=== PATIENT | female | born 1985 | race Caucasian/White ===

== ENCOUNTER 2018-09-08 15:40 | Emergency (ER) | payer BC, SELFPAY ==
[2018-09-08 15:44] VITALS: BP 134/90; PULSE 73; RESP 14; TEMP 36.8; O2SAT 98
[2018-09-08 16:06] LABS: Bilirubin Negative (Negative); Blood Negative (Negative); Clarity Clear (Clear); Glucose Negative (Negative); Ketones 15 mg/dL (Negative); Leukocyte Esterase Negative (Negative); Nitrite Negative (Negative); Specific Gravity >= 1.030 (1.005-1.025); Urobilinogen 0.2 EU/dL (Up TO 0.2)
--- NOTE | 2018-09-08 16:28 | W.ED.GENAD ---
Discharge Plan Disposition Patient Disposition: HOME Condition: Good Discharge Details Chief Complaint: Urinary Clinical Impression: Increased urinary frequency Primary Care Provider: Fatimah,Local ED Provider: Hiro Sanchez Home Meds and New Rx's Prescriptions: New phenazopyridine [Pyridium] 100 mg tablet 100 mg PO TID PRN (Reason: pain) 0 Days Qty: 6 RF: 0 ciprofloxacin HCl 250 mg tablet 250 mg PO BID Qty: 6 RF: 0 Discharge Instructions Instructions: Urinary Tract Infection in Women (ED) Additional Instructions: At this time there is no evidence of severe infection, however we may be in the early stages of infection. Please drink 10 to 12 cups of water per day, take the Pyridium as directed, and if your symptoms do not improve perform a trial of the antibiotic. If you notice any worsening of your symptoms, or any new symptoms such as vomiting, diarrhea, fever, chills, shortness of breath, chest pain, numbness, weakness, or fainting , please return immediately to the emergency department for reevaluation. Please follow up with your primary care provider as soon as possible for reassessment and reevaluation. As always, it was a pleasure participating in your medical care today. Discharge Data Discharge Date/Time-TO BE ENTERED AT DEPARTURE: 09/08/18 17:04 Medical Decision Making This is a 33-year-old female who presents today for symptoms of urinary frequency that started earlier this morning. She states that her symptoms feel similar to previous UTIs that she has had the past. Demonstrates no significant abdominal tenderness, no guarding or rebound. No significant flank or CVA tenderness. Urinalysis is ordered and shows no evidence of significant urinary tract infection. Urine is negative. Exam and vital signs are notably reassuring. I discussed with the patient the absence of significant UTI, discussed further evaluation with labs and imaging, and the patient would like to hold off on this at this time. She would like to go home, they feel this is reasonable. We will give her prescription for Pyridium, recommend significant oral intake for hydration. We will give a prescription for Cipro, however I made it clear to the patient that antibiotic should be taken if she develops worsening of her symptoms in conjunction with fever chills or other signs of significant urinary tract infection. Discussed the importance of close follow-up with her PCP and red flags which to return. I have extensively reviewed the treatment plan and discharge instructions with the patient. I have addressed all patient concerns at this time. The patient was made aware of what symptoms to monitor for that would warrant a return to the emergency department. Discussed the plan with the patient, they demonstrate verbal understanding and agreement with our assessment and plan at this time. HPI General Date/Time Provider Initiated Documentation: 09/08/18 15:42. HPI Narrative: This is a 33-year-old female with no significant past medical history who presents today for evaluation of urinary frequency. Patient states that for the last 12 hours she has had mild increase in urinary frequency, denies any burning, dysuria, significant abdominal pain, vomiting or diarrhea. She denies any vaginal discharge, history of STDs, hematuria, fever, or chills. She has no other complaints at this time. Of note she does state that she did have intercourse last 48 hours ago, at which time she did not urinate after intercourse. She does have a history of urinary tract infections in the past, however the most recent was greater than 6 months ago. She denies any history of kidney stones. No other complaints at this time. No other modifying factors. Related Data Home Medications Medication Instructions Recorded Confirmed ciprofloxacin HCl 250 mg PO BID #6 tab 09/08/18 phenazopyridine [Pyridium] 100 mg PO TID PRN 0 Days #6 tab 09/08/18 Previous Rx's Medication Instructions Recorded ciprofloxacin HCl 250 mg PO BID #6 tab 09/08/18 phenazopyridine [Pyridium] 100 mg PO TID PRN 0 Days #6 tab 09/08/18 Allergies Allergy/AdvReac Type Severity Reaction Status Date / Time amoxicillin Allergy Unverified 09/08/18 15:55 erythromycin base Allergy Unverified 09/08/18 15:55 hydromorphone [From Dilaudid] Allergy Unverified 09/08/18 15:55 sulfamethoxazole Allergy Unverified 09/08/18 15:55 [From Septra] trimethoprim [From Septra] Allergy Unverified 09/08/18 15:55 General Stated Complaint: Urinary SHASHI: 4 Review of Systems Review of Systems All systems reviewed & are unremarkable except as noted in HPI and below PFSH Social History Smoking/Tobacco Use Status: Never Alcohol Intake: current Alcohol Intake frequency: a few times a month Drug use: Never Substance use type: does not use Do you feel safe at home: Yes Do you feel safe in your relationship?: Yes Exam Narrative Exam Narrative: 1.Const: Well-nourished, Well-developed, appearing stated age 2.Eyes: PERRL, no conjunctival injection, and symmetrical lids. 3.ENT: Atraumatic external nose and ears. Moist MM. Neck: Symmetric, trachea midline, No thyromegaly. 4.CVS: +S1/S2, No murmurs or gallops. Peripheral pulses 2+ and equal in all extremities. Brisk capillary refill in all extremities. 5.RESP: Unlabored respiratory effort. Clear to auscultation bilaterally. No wheezes rales or rhonchi 6.GI: Soft, Nontender/Nondistended, No hepatosplenomegaly. No guarding or rebound. No significant CVA or flank tenderness on percussion. No guarding or rebound. No pubic or suprapubic tenderness. No pelvic tenderness on exam. Negative obturator and psoas sign. 7.MSK: Normocephalic/Atraumatic, Extremities w/o deformity or ttp No cyanosis or clubbing, Normal movement of all extremities 8.Skin: Warm, Dry. No rashes or lesions. 9.Neuro: promotion officer II-XII grossly intact. Sensation grossly intact, no focal neurologic deficits. 10.Psych: (AAO) x3. Appropriate mood and affect Course Vital Signs Temperature 36.8 C 09/08/18 15:44 Pulse 73 09/08/18 15:44 Respiratory Rate 14 09/08/18 15:44 Blood Pressure 134/90 09/08/18 15:44 Pulse Oximetry 98 09/08/18 15:44 Temperature 36.8 C 09/08/18 15:44 Temperature Source Temporal Artery Scan 09/08/18 15:44 Pulse 73 09/08/18 15:44 Respiratory Rate 14 09/08/18 15:44 Respiratory Effort Non-Labored 09/08/18 15:50 Blood Pressure 134/90 09/08/18 15:44 Blood Pressure Position Sitting 09/08/18 15:44 Pulse Oximetry 98 09/08/18 15:44 Oxygen Delivery Method Room Air 09/08/18 15:44 Oxygen Flow Rate 0 09/08/18 15:44 Pain Level 8 09/08/18 15:47 Lab/Test Results Lab/Test Results: Laboratory Tests Range/Units 09/08/18 15:47 Urine Color (Yellow) Yellow Urine Clarity (Clear) Clear Urine pH (5-8) 5.0 Ur Specific [place] (1.005-1.025) >= 1.030 H Urine Protein (Negative) mg/dL Negative Urine Ketones (Negative) mg/dL 15 H Urine Blood (Negative) Negative Urine Nitrite (Negative) Negative Urine Bilirubin (Negative) Negative Urine Urobilinogen (Up TO 0.2) EU/dL 0.2 Ur Leukocyte Esterase (Negative) Negative Urine Glucose (Negative) mg/dL Negative
[2018-09-08 17:08] VITALS: BP 134/90; PULSE 73; RESP 14; O2SAT 98
== END 2018-09-08 17:04 | disposition home or self-care (01) ==
LOC: ER 17:08
PROVIDERS: Emergency Provider Student in an Organized Health Care Education/Training Program
DX: R35.0 Frequency of micturition (principal); Z87.440 Personal history of urinary (tract) infections
CPT/HCPCS: 99283; 81003